=== PATIENT | male | born 1975 | race Caucasian/White ===

== ENCOUNTER 2018-08-15 05:28 | Day surgery (SDC) | payer OTHER ==
[~2018-08-15] VITALS: Ht 185.4 cm; Wt 78.0 kg
--- NOTE | ~2018-08-15 | H ---
[facility] [place] [address] [place] [address] HISTORY AND PHYSICAL Name: MIKO SERNA Room #: 150-3 [facility] M.R.#: [id number] Admission: 08/04/18 Attend Phys: Bhupinder Sharma MD Discharge: Date of : 71 Report #: [id number] THIS REPORT FOR: //name// CC: FAM unknown Bhupinder Sharma DATE OF SERVICE: 08/04/2018 PREOPERATIVE DIAGNOSES: 1. Symptomatic right inguinal hernia. 2. Umbilical hernia. 3. Possible left inguinal hernia. HISTORY OF PRESENT ILLNESS: The patient is a 42-year-old who has been diagnosed with hernia on the right side for years. The patient does do quite a bit of lifting at work. The patient has had increasing discomfort, uncomfortable all the time in the groin. It is worse if he is sitting in his car. Pain shoots down the right testicle. There is a sensation of burning in this area. No nausea, no vomiting, no bloating. Bowels are working well. Some burning when he urinates. Uncomfortable during intercourse. The patient was found to have a right inguinal hernia, a small umbilical hernia also. I believe he may have a hernia on the left side. The patient is recommended to have the hernia repaired. PAST MEDICAL HISTORY: No illnesses. The patient has mild Graves. The patient denies heart disease, high blood pressure, diabetes, liver or kidney disease, bleeding disorder. No history of blood clot. MEDICATIONS: Wzsu-qal-jzwlahl medication for acid reflux. ALLERGIES: He is not allergic to anything. PAST SURGICAL HISTORY: Sinus surgery in the past. FAMILY HISTORY: There is Alzheimer and lupus on mother's side. Colon cancer also. 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 Does not smoke. The patient has 2 beers a week. REVIEW OF SYSTEMS: The patient does have low back pain. No shortness of breath, chest pain or palpitation. No headache, blurred vision, weakness, numbness. PHYSICAL EXAMINATION: GENERAL: The patient is well-nourished male in no acute distress. [facility] [address] [place] [address] HISTORY AND PHYSICAL Name: MIKO SERNA Room #: 150-3 [facility] M.R.#: [id number] Admission: 08/04/18 Attend Phys: Bhupinder Sharma MD Discharge: Date of : 71 Report #: [id number] HEENT: Pupils reactive to light. Extraocular muscles are intact. Oropharynx is clear. NECK: Soft and supple, no masses. HEART: Regular rate and rhythm. No murmur or gallop. LUNGS: Clear to auscultation. ABDOMEN: Soft, nondistended, nontender. No mass. Small umbilical hernia is detected. No ascites. The patient does have a right inguinal hernia that is moderate size. Possible small left inguinal hernia. Testicles descended without masses. EXTREMITIES: No clubbing or edema. Sensation and movements are intact. IMPRESSION AND RECOMMENDATIONS: The patient is a 42-year-old who has a symptomatic right inguinal hernia, has had the hernia for years, recently it is becoming more problematic. No history of incarceration. The patient is recommended to have the hernia repaired. The patient is brought in for laparoscopic repair of right inguinal hernia. We will look to see if he has a left hernia. Incision will be made by the umbilicus. We will go ahead and repair umbilical hernia. By: [id number] Bhupinder Sharma MD /nt
--- NOTE | ~2018-08-15 | O ---
[facility] [place] [address] [place] [address] OPERATIVE REPORT Name: MIKO SERNA Room #: 150-2 [facility] M.R.#: [id number] Admission: 08/15/18 Attend Phys: Bhupinder Sharma MD Discharge: Date of : 71 Report #: [id number] THIS REPORT FOR: //name// CC: FAM unknown Bhupinder Sharma PREOPERATIVE DIAGNOSES: 1. Right inguinal hernia. 2. Possible left inguinal hernia. 3. Small umbilical hernia. POSTOPERATIVE DIAGNOSES: 1. Bilateral indirect inguinal hernia. 2. Umbilical hernia. PROCEDURES PERFORMED: Laparoscopic properitoneal repair of bilateral inguinal hernia with mesh; repair of umbilical hernia, no mesh. ANESTHESIA: General. SURGEON: Bhupinder Sharma MD COMPLICATIONS: None. ESTIMATED BLOOD LOSS: 5 mL. PROCEDURE NOTE: With the patient under anesthesia, a Neil catheter was placed. IV antibiotic was administered. 0.25% Marcaine was used to anesthetize the skin and subcutaneous tissue. Timeout was performed. A transverse incision was made on the right side of the umbilicus, carried underneath the umbilicus. The anterior rectus sheath on the right side of the umbilicus was identified, opened. Muscle was spread. Posterior sheath was then identified. The space between the muscle and the posterior sheath was then bluntly dissected inferiorly. Origin balloon trocar was placed through the same space. The balloon was inflated. CO2 was placed. Under visualization, a 5 mm trocar was placed about 2 inches below the umbilicus. Properitoneal dissection was then carried out. This was carried out with cautery and blunt dissection. The right side of the properitoneal space was opened up well. The inferior epigastric vessel on the right was identified. The dissection was carried out lateral to it, exposing the abdominal wall lateral to the internal ring. A second 5 mm trocar was placed here under visualization. The left side was then dissected open. The left inferior epigastric artery and vein was also identified. The patient did not have any direct defect on either side. The peritoneum laterally over the cord structure was found. The patient did have a small left indirect sac with a cord lipoma. On the right side, the patient was identified to have a moderately large right indirect hernia sac. The hernia sac was seen going up into the internal ring. The hernia sac was reduced without difficulty. This [facility] [address] [place] [address] OPERATIVE REPORT [facility] Room #: 150[facility]2 [facility]..#: [id number] Admission: 08/15/18 Attend Phys: Bhupinder Sharma MD Discharge: Date of : 71 Report #: [id number] was freed off the cord structure. On the right side, there was also a significant size cord lipoma. The cord was isolated on the right. The internal ring was well identified. Ventralex 3DMax lightweight mesh was used. The left side was placed. This was opened up and then positioned properly. Mesh was tacked lateral to the internal ring above the iliopubic tract with SorbaFix. Mesh was tacked over the pubic bone and Handy's ligament inferior medially. Superior medially the mesh was tacked to the rectus muscle. The right sided mesh also was then placed. This was also positioned. The mesh was tacked laterally covering the cord structure and the internal ring well. This was tacked to the wall with SorbaFix inferior medially to the Handy's ligament above the pubic bone and then superiorly medially to the rectus muscle. Mesh seated well bilaterally. CO2 was then released from the properitoneal space. The patient did have air that tracked through peritoneum and then intraabdominally. Dissection was then carried out freeing the skin over the umbilicus. There was a small protrusion of fat identified. This was properitoneal fat that protruded through the small umbilical hernia defect. The fat was reduced. I then placed a 5 mm trocar directly into the peritoneum at the fascia defect of the umbilicus. The fascia was isolated first. This was placed into the pneumoperitoneum without difficulty and then the CO2 intraabdominally was released. The fascia edge was then closed. The defect was pretty small, less than a centimeter and the edges were strong. This was closed with 0 PDS interrupted fashion x 2. The anterior rectus defect on the right side was closed with 0 PDS [id number] x 2. The skin was closed with 5-0 PDS at the two 5 mm trocar and then also this umbilical incision site. Steri-Strip and Band-Aids were applied to the 5 mm trocar site. A small gauze was placed over the umbilicus. OpSite was used for dressing. The patient was awakened. Neil catheter was removed and taken to the recovery room. The patient tolerated the procedure well. By: [id number] Bhupinder Sharma MD /vani
--- NOTE | ~2018-08-15 | H ---
[facility] [place] [address] [address] HISTORY AND PHYSICAL Name: MIKO SERNA Room #: [facility] [place] M.R.#: [id number] Admission: Attend Phys: Bhupinder Sharma MD Discharge: Date of : 71 Report #: [id number] THIS REPORT FOR: //name// CC: FAM unknown Bhupinder Sharma DATE OF SERVICE: 08/15/2018 PREOPERATIVE DIAGNOSES: 1. Right inguinal hernia. 2. Umbilical hernia. 3. Possible left inguinal hernia. HISTORY OF PRESENT ILLNESS: The patient is a 42-year-old who has had a right inguinal hernia for several years. The patient does quite a bit of lifting at work and he actually has 2 different jobs. The patient has had increasing bulge and discomfort in the right groin. Now it is pretty well uncomfortable all the time. Sitting in the car causes more symptoms. Pain does shoot down from the right groin into the right testicle area. The pain has associated burning nature. No nausea, no vomiting, no bloating. Bowels are working well. The patient does have some occasional difficulty with burning on urination. Also right groin feels uncomfortable during intercourse. The patient was examined and found to have a right inguinal hernia. Also, a small umbilical hernia. I believe he has a hernia on the left, but it is difficult to tell for sure. The patient is brought in for laparoscopic repair of right inguinal hernia, repair of umbilical hernia and looking at the left side, possible repair of the left umbilical hernia. PAST MEDICAL HISTORY: The patient has acid reflux. ALLERGIES: He is not allergic to anything. PAST SURGICAL HISTORY: Sinus surgery. MEDICATIONS: He is on acid reduction medication, does not know which one exactly. FAMILY HISTORY: There is colon cancer, Alzheimer, also lupus. 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 The patient does not smoke. Drinks 2 beers a week. REVIEW OF SYSTEMS: No chest pain, headache, shortness of breath, chest pain or palpitation. No numbness or weakness. [facility] [address] [place] [address] HISTORY AND PHYSICAL Name: MIKO SERNA DONALD Room #: [facility] [place] M.R.#: [id number] Admission: Attend Phys: Bhupinder Sharma MD Discharge: Date of : 71 Report #: [id number] PHYSICAL EXAMINATION: GENERAL: The patient is alert and oriented. HEENT: Pupils react to light. Extraocular muscles are intact. Oropharynx is clear. NECK: Soft and supple, no masses. LUNGS: Clear to auscultation. HEART: Regular rate and rhythm. No murmur or gallop. ABDOMEN: Soft, nondistended, nontender. Small umbilical hernia detected. The patient does have a moderately large right inguinal hernia, possible small left inguinal hernia. GENITOURINARY: Testicles are descended without masses. EXTREMITIES: No cyanosis, clubbing or edema. NEUROLOGIC: Normal motor and sensory exam. IMPRESSION AND RECOMMENDATIONS: The patient with a symptomatic right inguinal hernia. The hernia has been for many years, becoming more and more uncomfortable. The patient is recommended to have this repaired. Laparoscopic approach is recommended, discussed. Risk of bleeding, infection, mesh infection was discussed. We will be able to look at the time of surgery to see if there is a hernia on the left side, which I think there is. He has a small umbilical hernia present too. Since incision will be made by the belly button, we recommend repairing the umbilical hernia. The patient wishes to proceed. By: [id number] Bhupinder Sharma MD /nt
[~2018-08-15 05:28] MED LIST: PRILOSEC 20 MG20 MG PO; PROBIOTIC1 EAC1 PO
[2018-08-15 07:00] VITALS: BP 132/69
[2018-08-15] MEDS ORDERED: NORCO 5-325 TA1 EACH PO (09:35)
[2018-08-15 09:50] VITALS: BP 132/69
== END 2018-08-15 10:30 | disposition home or self-care (01) ==
LOC: TBA 05:28 → OR 05:28
DX: K40.20 Bilateral inguinal hernia, without obstruction or gangrene, not specified as recurrent (principal); K42.9 Umbilical hernia without obstruction or gangrene; D17.6 Benign lipomatous neoplasm of spermatic cord; K21.9 Gastro-esophageal reflux disease without esophagitis; Z98.890 Other specified postprocedural states; Z80.0 Family history of malignant neoplasm of digestive organs; Z82.0 Family history of epilepsy and other diseases of the nervous system; Z79.899 Other long term (current) drug therapy
CPT/HCPCS: 50010; 50101; 50411; 50455; 50507; 50555; 50687; 53065; 53307; 56525; 56526; 62110; 62900; 70005